=== PATIENT | female | born 1955 | race Caucasian/White ===

== ENCOUNTER → 2016-12-01 | Outpatient (CLI) | payer OTHER ==
[~2016-12-01] MED LIST: CHOL20003 PO; CYAN10005 PO; LACT1CAP35 PO; LISI5TAB7 PO; SIMV10TA3 PO; SUMA5SPR2 NAS; UBID100C24 PO
[2016-12-01 15:44] LABS: ASPARTATE AMINO TRANSFERASE 14 U/L (15-37); BLOOD UREA NITROGEN 21 mg/dL (7-18)
== END | disposition home or self-care (01) ==
LOC: STAR 14:11
PROVIDERS: ATTEND Surgery
DX: Z01.818 Encounter for other preprocedural examination (principal)
CPT/HCPCS: 36415; 80053; 85025; 93005

== ENCOUNTER 2016-12-07 05:35 | Observation (INO) | payer OTHER ==
[~2016-12-07] VITALS: Ht 157.5 cm; Wt 68.0 kg
[~2016-12-07 05:35] MED LIST changes: +CHOL2000 PO; -CHOL20003 PO
[2016-12-07] MEDS ORDERED: FENTANYL PF 250 MCG/5ML ONE (05:53)
[2016-12-07] MEDS ORDERED: MIDAZOLAM 1 MG/ML, 2ML ONE (05:53)
[2016-12-07 06:22] VITALS: BP 137/80
[2016-12-07] MEDS ORDERED: LIDOCAINE 1%, 2ML ONE (06:36)
[2016-12-07] MEDS ORDERED: GABAPENTIN 300 MG CAPSULE ONE (06:37)
[2016-12-07] MEDS ORDERED: GABAPENTIN 300 MG CAPSULE PO SCH (07:00)
[2016-12-07] MEDS ORDERED: GABAPENTIN 300 MG CAPSULE PO ONE (07:02)
[2016-12-07] MEDS ORDERED: POTASSIUM CHLORIDE 20 MEQ in D5%-0.45% NACL 1,000 ML IV SCH (07:05)
[2016-12-07] MEDS ORDERED: DIPHENHYDRAMINE 50 MG/ML, 1ML IV PRN (07:30)
[2016-12-07] MEDS ORDERED: HYDROmorphone 1 MG/ML, 1ML IV PRN ×2 (07:30→10:00)
[2016-12-07] MEDS ORDERED: HYDROmorphone 2MG TABLET PO PRN (07:30)
[2016-12-07] MEDS ORDERED: DIPHENHYDRAMINE 25 MG CAPSULE PO PRN (07:30)
[2016-12-07 08:48] LABS: IOPTH BASELINE 133 pg/mL
[2016-12-07] MEDS: LISINOPRIL 5 MG TABLET PO SCH (09:00)
[2016-12-07] MEDS ORDERED: FENTANYL PF 100 MCG/2ML ONE (09:23)
[2016-12-07] MEDS ORDERED: OXYcodone 5 MG/5 ML ORAL.SOL UDC ONE (09:23)
[2016-12-07] MEDS: FENTANYL PF 100 MCG/2ML IV PRN ×2 (09:30→09:40)
[2016-12-07] MEDS ORDERED: NEOSTIGMINE 1 MG/ML, 10ML ONE (09:53)
[2016-12-07] MEDS ORDERED: GLYCOPYRROLATE 0.2MG/1ML ONE (09:53)
[2016-12-07] MEDS ORDERED: PROPOFOL 10 MG/ML, 20ML ONE (09:53)
[2016-12-07] MEDS ORDERED: ROCURONIUM 10 MG/ML ONE (09:53)
[2016-12-07] MEDS ORDERED: SUCCINYLCHOLINE 20 MG/ML, 10ML ONE (09:53)
[2016-12-07] MEDS ORDERED: ONDANSETRON 2MG/ML, 2ML ONE (09:53)
[2016-12-07] MEDS ORDERED: hydrALAzine 20 MG/ML, 1ML IV PRN (10:00)
[2016-12-07] MEDS ORDERED: OXYcodone 5 MG/5 ML ORAL.SOL UDC PO PRN (10:00)
[2016-12-07] MEDS ORDERED: MEPERIDINE/PF 25MG/0.5ML IVPush PRN (10:00)
[2016-12-07] MEDS ORDERED: PROMETHAZINE 25 MG/ML, 1ML IV PRN (10:00)
[2016-12-07] MEDS ORDERED: ACETAMINOPHEN 325 MG TABLET PO PRN (10:00)
[2016-12-07] MEDS ORDERED: LABETALOL 5MG/ML, 20ML IV PRN (10:00)
[2016-12-07] MEDS ORDERED: ONDANSETRON 2MG/ML, 2ML IVPush PRN (10:00)
[2016-12-07] MEDS: ACETAMINOPHEN 500 MG TABLET PO SCH ×3 (11:49→22:36)
[2016-12-07] MEDS: D5%-0.45NACL+KCL 20MEQ 1,000 ML IV SCH ×2 (15:02→22:56)
[2016-12-07] MEDS: ONDANSETRON 2MG/ML, 2ML IVPush PRN ×2 (15:03→21:59)
[2016-12-07 19:39] VITALS: BP 119/68
[2016-12-07] MEDS ORDERED: SIMVASTATIN 10 MG TABLET PO SCH (21:00)
[2016-12-08 00:23] VITALS: BP 115/64
[2016-12-08 03:59] VITALS: BP 116/70
[2016-12-08] MEDS: ACETAMINOPHEN 500 MG TABLET PO SCH ×3 (06:01→14:56)
[2016-12-08] MEDS: D5%-0.45NACL+KCL 20MEQ 1,000 ML IV SCH (08:08)
[2016-12-08 08:10] VITALS: BP 119/74
[2016-12-08] MEDS: LISINOPRIL 5 MG TABLET PO SCH (09:45)
[2016-12-08] MEDS ORDERED: HYDR2TAB29 PO (15:36)
== END 2016-12-08 15:45 | disposition home or self-care (01) ==
LOC: OUT 05:35 → ORIP 07:05 → 4NOR 10:31 → DCLOUNGE 12-08 15:23
PROVIDERS: ADMIT Surgery; ATTEND Surgery
DX: E21.0 Primary hyperparathyroidism (principal)
CPT/HCPCS: 36415; 60500; 82040; 82310; 83970; 88305; 88331; 95865; 95940; 96374; 96375; 96376; C1729; C1760; G0378; J0330; J1170; J1200; J2250; J2405; J2704; J2710; J3010; J3480; J3490